=== PATIENT | female | born 1980 | race American Indian/Alaskan Native ===

== ENCOUNTER 2017-05-15 17:38 | Inpatient (IN) | payer OTHER ==
[2017-05-15] MEDS ORDERED: Ondansetron 4 MG/2 ML SDV IV PRN (18:01)
[2017-05-15] MEDS ORDERED: Acetaminophen 325 MG Tab PO PRN (18:01)
[2017-05-15] MEDS ORDERED: Carboprost Tromethamine 250 MCG/1 ML Amp IM PRN (18:01)
[2017-05-15] MEDS ORDERED: Misoprostol 400 MCG (4 X 100 MCG TAB) RECTAL PRN (18:01)
[2017-05-15] MEDS ORDERED: Methylergonovine 0.2 MG/1 ML Amp IM PRN (18:01)
[2017-05-15] MEDS ORDERED: Lidocaine 1% 30 ML SDV INJECT PRN (18:01)
[2017-05-15] MEDS ORDERED: Lactated Ringers 500 ML IV ONE (18:01)
[2017-05-15] MEDS ORDERED: Sodium Chloride 0.9% 10 ML Syringe FLUSH PRN (18:01)
[2017-05-15] MEDS ORDERED: Oxytocin/Normal Saline 30 UNIT/500 ML BAG IV SCH (18:15)
[2017-05-15] MEDS: Lactated Ringers 1,000 ML IV SCH ×2 (22:36→23:03)
[2017-05-15] MEDS ORDERED: fentaNYL 100 MCG/2 ML SDV ONE (22:48)
[2017-05-16] MEDS ORDERED: Simethicone 80 MG Tab.Chew PO PRN (01:40)
[2017-05-16] MEDS ORDERED: Benzocaine/Menthol 20%-0.5% Spray 56 GM Canister TOP PRN (01:40)
--- NOTE | 2017-05-16 02:07 | DEL ---
DATE: 05/16/2017 PREPROCEDURE DIAGNOSES: 1. A 38 and 0/7 weeks' gestation. 2. 3, para 2-0-0-2. 3. Blood type A positive. 4. Rubella immune. 5. Group B Streptococcus negative. 6. History of shoulder dystocia. 7. Abnormal 1-hour glucose tolerance test and normal 3-hour test. 8. Spontaneous rupture of membranes. 9. Former smoker. POSTPROCEDURE DIAGNOSES: 1. A 38 and 0/7 weeks' gestation. 2. 3, now para 3-0-0-3. 3. Blood type A positive. 4. Rubella immune. 5. Group B Streptococcus negative. 6. History of shoulder dystocia. 7. Abnormal 1-hour glucose tolerance test and normal 3-hour test. 8. Spontaneous rupture of membranes. 9. Former smoker. 10.Status post spontaneous vaginal delivery with first-degree laceration repair. BRIEF HISTORY: A 36-year-old female, admitted to the hospital at 37 weeks 6 days gestation with above-listed diagnoses, had ruptured at home with clear fluid and progressed nicely through stage I labor spontaneously over 7-1/2 hours with intrathecal. When she was complete, she was comfortable and pushing well and stage II only lasted approximately 3 minutes and she only pushed through 2 contractions. PROCEDURE IN DETAIL: The patient in dorsal lithotomy position, she pushed excellently with 2 contractions resulting in delivery of a viable male infant in the OA position over intact perineum. Infant's head delivered and then left hand presented with the anterior shoulder and remainder of the infant delivered easily thereafter. was dried, stimulated, and placed on mother's abdomen. Delayed cord clamping was awaited and then father cut the umbilical cord and baby moved higher up on mother's abdomen. Cord blood sample was obtained and then placenta delivered by gentle cord traction and concomitant uterine massage seven minutes after delivery of the baby. Labia and vagina were inspected and there was a small first-degree laceration present, however, it was bleeding, so this was repaired with a [id number] stitch and 1 simple interrupted. The patient tolerated quite well. No additional anesthesia was necessary. DISPOSITION: Mother and baby to stay in the room at this time. COMPLICATIONS: None. ESTIMATED BLOOD LOSS: 250 mL. [facility] /[id number] MTDD
--- NOTE | 2017-05-16 02:31 | HP ---
DATE: 05/15/2017 HISTORY OF PRESENT ILLNESS: A 36-year-old 3, para 2-0-0-2, presents to the hospital with gross rupture of membranes. She is at 37 and 6/7 weeks' gestation based on last menstrual period. Reports that at 5:00 this evening, she had a sudden large gush of clear fluid. No vaginal bleeding. movement has been good. After getting her daughters taken care of, she came into the hospital for further evaluation and was found to be in active labor and cervical dilatation of likely 1 cm when nurse checked her, and then when I came in about an hour later, was 3 cm. No other acute concerns. No symptoms of preeclampsia. CARE: Blood type A positive. Rubella immune. Syphilis serology nonreactive. Urine culture negative. Hepatitis B and C negative. Gonorrhea and Chlamydia negative. TSH normal. Glucose tolerance test was abnormal with 1 hour of 169, but a 3-hour test was normal. She is group B strep negative. OBSTETRICAL HISTORY: 1. On 03/11/2010, at 40 and 6/7 weeks' gestation, female infant, delivered by spontaneous vaginal delivery. Her name is Tresa. weight 2985 g with some labor during that . She is a female , delivered under epidural anesthetic with 18 hours of stage I labor, scores were 9 and 9. Del[address] Dr. Montalvo in [place]. 2. On 02/15/2013, at 41 and 1/7 weeks' gestation, delivered a female via spontaneous vaginal delivery. Her name is Tanisha. She is currently living, and she had a weight of 3657 g. This labor was complicated by a 20-second shoulder dystocia, and she was induced for postdates . Stage I was approximately 8 hours. Stage II, 40 minutes. Baby's scores were 8 and 9. She was delivered here in [place] by Dr. Garcia. PAST MEDICAL HISTORY: Former smoker, acne, endometriosis, history of hepatitis A. Has her ears pierced. No transfusions, IV drug use, or tattoos. Menarche at age 12 with monthly cycles and 5 days of flow. PAST SURGICAL HISTORY: None. FAMILY HISTORY: Father with diabetes and kidney cancer with metastases to lung and bone. Mother with hypertension. Sister, brother, and 2 daughters are alive and well. Maternal grandmother with breast cancer. Family history negative for bleeding or clotting disorders, multiple births, cystic fibrosis, or seizures. The patient is and quit smoking in September 2016. 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 Her , Michael, is working at [employer]. They have 2 daughters. There will be no smoke exposure in the home. MEDICATIONS: 1. vitamin 1 daily. 2. Other medications this included Tylenol. ALLERGIES: Nitrofurantoin. REVIEW OF SYSTEMS: No fever, chills. No nausea, vomiting, diarrhea, constipation. No headaches or blurry vision. No chest pain or shortness of breath. No sudden change in her swelling. Denies any other acute concerns since her appointment in the office on Friday. OBJECTIVE: Vital Signs: Temperature is 97.4, pulse 80, blood pressure 116/75, respiratory rate of 18. HEENT: Unremarkable. Neck: Supple without adenopathy. Heart: Regular without obvious murmur. Lungs: Clear to auscultation bilaterally. Abdomen: Soft without masses. Abdomen is gravid. heart tones are 30 beats per minute at baseline. Moderate [id number] variability. Accelerations noted. [place] with contractions every 4 minutes, lasting 90 to 150 seconds and [id number] in intensity. Cervix, per nurse's, still fairly high, and she is estimated 1+ cm, 75% effaced, 0 station, in mid position. When I came in she was 3 cm with a forebag present. This bag as AROM'd with amnihook. Extremities: Trace edema bilaterally. No erythema or tenderness noted. LABORATORY DATA: Hemoglobin is 11.6, platelets are 180. ASSESSMENT: 1. A 37 and 6/7th weeks' gestation with spontaneous rupture of membranes. 2. 3, para 2-0-0-2. 3. Blood type A positive, rubella immune, and group B streptococcus negative. 4. History of shoulder dystocia. 5. Abnormal 1-hour glucose test with a normal 3 hour. 6. Former smoker. PLAN: At this time, expectant management of labor. We will intervene should any problems or concerns arise or if she is lacking to get into labor or fails to make progress. The patient's initial questions have been answered. [facility] /[id number] PALLAVI
[2017-05-16] MEDS: Prenatal Multivitamin with Calcium/Folic Acid/Iron Tab PO SCH (08:35)
[2017-05-16] MEDS: Ferrous Sulfate 325 MG Tab PO SCH (08:35)
[2017-05-16] MEDS: Docusate Sodium 100 MG Cap PO PRN ×2 (08:35→19:55)
--- NOTE | 2017-05-16 08:43 | PCM.PRNOTE ---
- Free Text/Narrative Note: Requested to provide analgesia to full term patient in severe pain. Upon entering the room, pt is lying left side, rigid, complaining of severe pain and discomfort. Procedure was discussed with pt including adverse outcomes and expectations. Pt consented to analgesia, SAB/IT. Pt placed into a sitting position. Landmarks for SAB/IT were identified and marked. Back was prepped with betadine x3. A sterile, transparent, fenistrated drape was applied. Excess betadine was removed. Using 1 mL of a 2% lidocaine solution, a skin wheel was placed at the L3/L4 interspace. Using a 24 ga pencan spinal needle (4 inch), needle was inserted until positive for CSF. Negative for heme or paresthesias. Injected fentanly 20 mcg, sufenta 10 mcg, and 10 mg of a 0.75% bupivicaine solution. Pt was placed left lateral position. There were zero complications or adverse outcomes. After 10 minutes, mother had zero pain. Will continue to monitor.
[2017-05-16] MEDS: Ibuprofen 800 MG Tab PO PRN ×2 (13:10→20:53)
[2017-05-17] MEDS: Ferrous Sulfate 325 MG Tab PO SCH (07:56)
[2017-05-17] MEDS: Prenatal Multivitamin with Calcium/Folic Acid/Iron Tab PO SCH ×2 (07:56→09:39)
[2017-05-17] MEDS: Docusate Sodium 100 MG Cap PO PRN ×2 (07:57→20:43)
[2017-05-17] MEDS: Ibuprofen 800 MG Tab PO PRN ×2 (07:57→20:43)
--- NOTE | 2017-05-17 09:06 | PCM.PNPP ---
- General Info Date of Service: 05/17/17 (PPD # 1 S/P ) Functional Status: Reports: Pain Controlled, Tolerating Diet, Ambulating - Review of Systems General: Reports: No Symptoms HEENT: Reports: No Symptoms Pulmonary: Reports: No Symptoms Cardiovascular: Reports: No Symptoms Gastrointestinal: Reports: No Symptoms Genitourinary: Reports: No Symptoms Musculoskeletal: Reports: No Symptoms Skin: Reports: No Symptoms Neurological: Reports: No Symptoms Psychiatric: Reports: No Symptoms - General Info Date of Service: 05/17/17 (PPD # 1 S/P ) - Patient Data Vital Signs - Most Recent: Last Vital Signs Temp 98.5 F 05/16/17 20:00 Pulse 70 05/16/17 20:00 Resp 16 05/16/17 20:00 BP 103/60 05/16/17 20:00 Pulse Ox 94 L 05/15/17 23:45 Weight - Most Recent: 195 lb Lab Results - Last 24 Hours: Laboratory Results - last 24 hr 05/17/17 Range/Units 06:15 WBC 9.2 (5.0-10.0) 10^3/uL RBC 3.93 L (4.2-5.4) 10^6/uL Hgb 10.5 L (12.0-16.0) g/dL Hct 32.5 L (37.0-47.0) % MCV 82.7 (80-100) fL MCH 26.7 L (27.0-34.0) pg MCHC 32.3 L (33.0-35.0) g/dL Plt Count 149 L (150-450) 10^3/uL Med Orders - Current: Current Medications Acetaminophen (Tylenol) 650 mg PO Q4H PRN PRN Reason: Pain (Mild 1-3) and fever Last Admin: 05/16/17 19:55 Dose: 650 mg Benzocaine/Menthol (Dermoplast Pain Relief [place]) 0 gm TOP Q4H PRN PRN Reason: Perineal comfort measures Docusate Sodium (Colace) 100 mg PO BID PRN PRN Reason: Constipation Last Admin: 05/17/17 07:57 Dose: 100 mg Ferrous Sulfate (Ferrous Sulfate) 325 mg PO WITHBREAKFAST BERTIN Last Admin: 05/17/17 07:56 Dose: 325 mg Oxytocin/Sodium Chloride (Pitocin In Ns 30 Unit/500 Ml) 30 unit in 500 mls @ 2 mls/hr IV TITRATE BERTIN; 2 MUNITS/MIN PRN Reason: Protocol Last Titration: 05/16/17 04:00 Dose: 0 mls/hr Ibuprofen (Motrin) 800 mg PO Q8H PRN PRN Reason: Mild Pain or Fever Last Admin: 05/17/17 07:57 Dose: 800 mg Prenat Multivit/Technology Analyst/Iron/Folic Ac ( Plus Iron) 1 each PO DAILY BERTIN Last Admin: 05/17/17 07:56 Dose: 1 each Simethicone (Simethicone) 80 mg PO Q4H PRN PRN Reason: Gas Sodium Chloride (Saline Flush) 10 ml FLUSH ASDIRECTED PRN PRN Reason: Keep Vein Open Discontinued Medications Carboprost Tromethamine (Hemabate Ds) 250 mcg IM ASDIRECTED PRN PRN Reason: HEMORRHAGE Fentanyl (Sublimaze) Confirm Administered Dose 100 mcg .ROUTE .STK-MED ONE Stop: 05/15/17 22:49 Lactated Ringer's (Ringers, Lactated) 500 mls @ 999 mls/hr IV .BOLUS ONE Stop: 05/15/17 18:31 Last Admin: 05/16/17 04:12 Dose: Not Given Lactated Ringer's (Ringers, Lactated) 1,000 mls @ 125 mls/hr IV ASDIRECTED BERTIN Last Admin: 05/15/17 23:03 Dose: 125 mls/hr Lidocaine HCl (Xylocaine-Mpf 1%) 10 ml INJECT ASDIRECTED PRN PRN Reason: Perineal Repair Methylergonovine Maleate (Methergine) 0.2 mg IM ASDIRECTED PRN PRN Reason: Hemorrhage Misoprostol (Cytotec) 800 mcg RECTAL ASDIRECTED PRN PRN Reason: Hemorrhage Ondansetron HCl (Zofran) 4 mg IV Q4H PRN PRN Reason: Nausea/Vomiting Last Admin: 05/15/17 22:39 Dose: 4 mg Sufentanil Citrate (Sufenta) Confirm Administered Dose 50 mcg .ROUTE .STK-MED ONE Stop: 05/15/17 22:49 - Interaction Disposition, : [place] in Room with Family Infant Interaction: Holding Feeding: Breastfed ; Nursed Well Support Person: Significant Other - Recovery Exam Fundal Tone: Firm Fundal Level: 2 Fingerbreadths Below Umbilicus Fundal Placement: Midline Lochia Amount: Small Lochia Color: Rubra/Red Perineum Description: Intact, Minimal Bruising/Swelling Episiotomy/Laceration: Approximated Bladder Status: Nonpalpable, Voiding - Exam General: Alert, Oriented, Cooperative, No Acute Distress HEENT: Pupils Equal, Pupils Reactive, EOMI, Mucous Membr. Moist/[place] Neck: Supple Lungs: Clear to Auscultation, Normal Respiratory Effort Cardiovascular: Regular Rate, Regular Rhythm, No Murmurs GI/Abdominal Exam: Normal Bowel Sounds, Soft, Non-Tender, No Organomegaly, No Distention Extremities: Normal Inspection, Normal Range of Motion, Non-Tender, No Pedal Edema, Normal Capillary Refill Skin: Warm, Dry, Intact Neurological: No New Focal Deficit, Normal Gait, Normal Speech, Normal Tone, Strength Equal Bilateral Psy/Mental Status: Alert, Normal Affect, Normal Mood - Problem List Review Problem List Initiated/Reviewed/Updated: Yes - Assessment Assessment:: PPD # 1 S/P Doing well. Desires to go home today. - Plan Plan:: Discharge to home if discharged by Dr. Tate. Ibuprofen/Tylenol for pain. Follow-up with Dr. Gill next week for recheck of then in 6 weeks for visit. All questions answered.
[2017-05-18] MEDS: Prenatal Multivitamin with Calcium/Folic Acid/Iron Tab PO SCH (09:30)
[2017-05-18] MEDS: Ferrous Sulfate 325 MG Tab PO SCH (09:30)
[2017-05-18] MEDS: Ibuprofen 800 MG Tab PO PRN (09:30)
[2017-05-18] MEDS: Docusate Sodium 100 MG Cap PO PRN (09:30)
--- NOTE | 2017-05-18 11:31 | PCM.PNPP ---
- General Info Date of Service: 05/18/17 (PPD # 2 S/P ) Functional Status: Reports: Pain Controlled, Tolerating Diet, Ambulating, Urinating - Review of Systems General: Reports: No Symptoms HEENT: Reports: No Symptoms Pulmonary: Reports: No Symptoms Cardiovascular: Reports: No Symptoms Gastrointestinal: Reports: No Symptoms Genitourinary: Reports: No Symptoms Musculoskeletal: Reports: No Symptoms Skin: Reports: No Symptoms Neurological: Reports: No Symptoms Psychiatric: Reports: No Symptoms - General Info Date of Service: 05/18/17 (PPD # 2 S/P ) - Patient Data Vital Signs - Most Recent: Last Vital Signs Temp 98.3 F 05/17/17 20:00 Pulse 80 05/17/17 20:00 Resp 16 05/17/17 20:00 BP 121/76 05/17/17 20:00 Pulse Ox 99 05/17/17 08:00 Weight - Most Recent: 195 lb Med Orders - Current: Current Medications Acetaminophen (Tylenol) 650 mg PO Q4H PRN PRN Reason: Pain (Mild 1-3) and fever Last Admin: 05/16/17 19:55 Dose: 650 mg Benzocaine/Menthol (Dermoplast Pain Relief [place]) 0 gm TOP Q4H PRN PRN Reason: Perineal comfort measures Docusate Sodium (Colace) 100 mg PO BID PRN PRN Reason: Constipation Last Admin: 05/18/17 09:30 Dose: 100 mg Ferrous Sulfate (Ferrous Sulfate) 325 mg PO WITHBREAKFAST BERTIN Last Admin: 05/18/17 09:30 Dose: 325 mg Oxytocin/Sodium Chloride (Pitocin In Ns 30 Unit/500 Ml) 30 unit in 500 mls @ 2 mls/hr IV TITRATE BERTIN; 2 MUNITS/MIN PRN Reason: Protocol Last Titration: 05/16/17 04:00 Dose: 0 mls/hr Ibuprofen (Motrin) 800 mg PO Q8H PRN PRN Reason: Mild Pain or Fever Last Admin: 05/18/17 09:30 Dose: 800 mg Prenat Multivit/[place]/Iron/Folic Ac ( Plus Iron) 1 each PO DAILY BERTIN Last Admin: 05/18/17 09:30 Dose: 1 each Simethicone (Simethicone) 80 mg PO Q4H PRN PRN Reason: Gas Sodium Chloride (Saline Flush) 10 ml FLUSH ASDIRECTED PRN PRN Reason: Keep Vein Open Discontinued Medications Carboprost Tromethamine (Hemabate Ds) 250 mcg IM ASDIRECTED PRN PRN Reason: HEMORRHAGE Fentanyl (Sublimaze) Confirm Administered Dose 100 mcg .ROUTE .STK-MED ONE Stop: 05/15/17 22:49 Last Admin: 05/17/17 10:12 Dose: Not Given Lactated Ringer's (Ringers, Lactated) 500 mls @ 999 mls/hr IV .BOLUS ONE Stop: 05/15/17 18:31 Last Admin: 05/16/17 04:12 Dose: Not Given Lactated Ringer's (Ringers, Lactated) 1,000 mls @ 125 mls/hr IV ASDIRECTED BERTIN Last Admin: 05/15/17 23:03 Dose: 125 mls/hr Lidocaine HCl (Xylocaine-Mpf 1%) 10 ml INJECT ASDIRECTED PRN PRN Reason: Perineal Repair Methylergonovine Maleate (Methergine) 0.2 mg IM ASDIRECTED PRN PRN Reason: Hemorrhage Misoprostol (Cytotec) 800 mcg RECTAL ASDIRECTED PRN PRN Reason: Hemorrhage Ondansetron HCl (Zofran) 4 mg IV Q4H PRN PRN Reason: Nausea/Vomiting Last Admin: 05/15/17 22:39 Dose: 4 mg Sufentanil Citrate (Sufenta) Confirm Administered Dose 50 mcg .ROUTE .STK-MED ONE Stop: 05/15/17 22:49 Last Admin: 05/17/17 10:12 Dose: Not Given - Interaction Disposition, : [place] in Room with Family Interaction: Holding Feeding: Breastfed ; Nursed Well Support Person: Significant Other - Recovery Exam Fundal Tone: Firm Fundal Level: 2 Fingerbreadths Below Umbilicus Fundal Placement: Midline Lochia Amount: Small Lochia Color: Rubra/Red Perineum Description: Intact, Minimal Bruising/Swelling Episiotomy/Laceration: Approximated Bladder Status: Nonpalpable, Voiding Urinary Elimination: Voided - Exam General: Alert, Oriented, Cooperative, No Acute Distress HEENT: Pupils Equal, Pupils Reactive, EOMI, Mucous Membr. Moist/[place] Neck: Supple Lungs: Clear to Auscultation, Normal Respiratory Effort Cardiovascular: Regular Rate, Regular Rhythm, No Murmurs GI/Abdominal Exam: Normal Bowel Sounds, Soft, Non-Tender, No Distention Extremities: Normal Inspection, Normal Range of Motion, Non-Tender, No Pedal Edema Skin: Warm, Dry, Intact Neurological: No New Focal Deficit Psy/Mental Status: Alert, Normal Affect, Normal Mood - Problem List & Annotations (1) Vaginal delivery SNOMED Code(s): 589952625 Code(s): O80 - ENCOUNTER FOR FULL-TERM UNCOMPLICATED DELIVERY Status: Acute Current Visit: Yes - Problem List Review Problem List Initiated/Reviewed/Updated: Yes - Assessment Assessment:: PPD # 2 S/P Doing well. Desires to go home today. - Plan Plan:: Discharge to home. Ibuprofen/Tylenol for pain. Follow-up with Dr. Gill next week for recheck of infant then in 6 weeks for visit. All questions answered.
[2017-05-18 11:45] VITALS: BP 114/71
[2017-05-18] MEDS ORDERED: fentaNYL 100 MCG/2 ML SDV ITHECAL ONE (11:59)
--- NOTE | 2017-05-19 07:19 | DISCH ---
PATIENT ADMITTED ON 05/15/2017 INDICATION FOR ADMISSION: Ms. Peacock is a 36-year-old 3, para 2-0- 0-2 female, who reported to Labor and Delivery at 37 and 6/7 weeks' gestation with spontaneous rupture of membranes. She tolerated her labor quite well, and once she got uncomfortable, she had intrathecal anesthesia. Once she got to complete, she started pushing, and she had a normal spontaneous vaginal delivery of a viable male over first-degree perineal laceration, OA, who weighed 7 pounds 2 ounces, 20 inches long with scores of 9 at 1 minute, 9 at 5 minutes. She recovered quite well. She tolerated her diet well and ambulated quite well. She is afebrile. Vital signs are stable. No complications occurred throughout her hospital stay. She was discharged to home on day #2. LABORATORY AND DIAGNOSTIC STUDIES: On 05/15/2017, WBC 8.9, hemoglobin 11.6, hematocrit 34.6, platelet count 180,000. On 05/17/2017, WBC 9.2, hemoglobin 10.5, hematocrit 32.5, platelet count 149,000. DISCHARGE INSTRUCTIONS: 1. Discharge to home. 2. Follow up with Dr. Jose Castaneda next week with infant. 3. Follow up with Dr. Jose Castaneda at 6-week checkup. 4. All questions answered. 5. Ibuprofen 600 to 800 mg every 6 to 8 hours p.r.n. for pain. 6. Tylenol p.r.n. for pain. 7. Discharge instructions including activity, followup, medications, diet, and wound care were discussed with the patient. She understands these and is willing to comply with these. 8. No douching, tampons, or intercourse for 6 weeks. DISCHARGE DIAGNOSES: 1. Thirty eight week intrauterine . 2. Spontaneous rupture of membranes. 3. Advanced maternal age. 4. Normal spontaneous vaginal delivery of a viable male , weighing 7 pounds 2 ounces, 20 inches long with scores of 9 at 1 minute, 9 at 5 minutes. 5. Intrathecal anesthesia. 6. Acute anemia secondary to blood loss. [facility] /[id number]
== END 2017-05-18 12:00 | disposition home or self-care (01) | DRG 775 ==
LOC: DL.OBCHECK 17:38 → DL.OB 18:06 → OBSVTOIN 05-16 00:34 → DL.MS 05-17 14:50
PROVIDERS: ADMIT Family Medicine; ATTEND Family Medicine
PROC: 10E0XZZ Delivery of Products of Conception, External Approach (ICD-10-PCS; principal; 2017-05-16)
PROC: 3E0R3CZ (ICD-10-PCS; 2017-05-16)
PROC: 00HU33Z Insertion of Infusion Device into Spinal Canal, Percutaneous Approach (ICD-10-PCS; 2017-05-16)
PROC: 4A1HXFZ Monitoring of Products of Conception, Cardiac Rhythm, External Approach (ICD-10-PCS; 2017-05-16)
PROC: 0HQ9XZZ Repair Perineum Skin, External Approach (ICD-10-PCS; 2017-05-16)
DX: O42.02 Full-term premature rupture of membranes, onset of labor within 24 hours of rupture (principal); D62 Acute posthemorrhagic anemia; O70.0 First degree perineal laceration during delivery; Z3A.38 38 weeks gestation of pregnancy; Z37.0 Single live birth; Z87.891 Personal history of nicotine dependence; Z88.8 Allergy status to other drugs, medicaments and biological substances
CPT/HCPCS: 36415; 51701; 85027; A9270-GY; J2405; J2590; J3010; J7120